=== PATIENT | female | born 1980 | race Caucasian/White ===

== ENCOUNTER → 2019-03-18 | Outpatient (CLI) | payer BC | LOC: MHCPAIN 08:30 | DX: G89.29 Other chronic pain (principal); M47.817 Spondylosis without myelopathy or radiculopathy, lumbosacral region; M53.3 Sacrococcygeal disorders, not elsewhere classified; M96.1 Postlaminectomy syndrome, not elsewhere classified; M50.90 Cervical disc disorder, unspecified, unspecified cervical region | CPT/HCPCS: G0463 ==